=== PATIENT | female | born 1955 | race Caucasian/White ===

== ENCOUNTER 2017-12-21 11:55 | Outpatient (CLI) | payer MEDICAID, SELFPAY ==
[2017-12-21 12:05] VITALS: BP 116/69; PULSE 77; RESP 17; TEMP 37.2; O2SAT 99
--- NOTE | 2017-12-21 12:35 | DI.RAD_ITS ---
SYMPTOMS/DIAGNOSIS: LUMBAR MEDIAL BRANCH BLOCK C-ARM FLUOROSCOPY: Fluoroscopy Time: 25.2 sec C-arm fluoroscopy was utilized by Dr. Mac. Please see Dr. Mac's procedure note. Hardcopies show needles positioned adjacent to the facet joints at what appear to be the L 3 - 4, L 4 - 5 and L 5 - S 1 levels of the right.
--- NOTE | 2017-12-21 12:37 | PDOC.PAIN_ITS ---
Pain Clinic Procedure Note Current Active Problems Problem Status Onset Lumbosacral spondylosis without myelopathy Acute Lumbar/Sacral Medial Branch Blocks EBONI KAUR has been referred to the [facility] for lumbar/sacral medial branch blocks. COMMENTS: I did review the notes from Ms. Arevalo. Patient was interviewed and the medical record reviewed. There were no medical , pharmacologic, radiographic or other structural contraindications to attempting fluoroscopically guided local anesthetic lumbar/sacral medial branch blocks. Risks and expected side effects as well as potential benefit of the procedure were reviewed and voiced concerns addressed. The printed consent form was signed and witnessed. Standard time-out procedure was performed. Patient was placed in the prone position on the fluoroscopy table and automated blood pressure cuff and pulse oximeter applied. The skin entry points for approaching the anatomic target points of the segmental medial branches of right L3-L5DR were identified with anfluoroscopy and marked. Following thorough Chlorhexadine preparation of the skin and draping and 1% lidocaine infiltration of the skin entry points and subcutaneous tissues, a 25 gauge 3.5 spinal needle was placed under fluoroscopic guidance down on to the target point for each respective segmental medial branch.Position was confirmed in A/P, oblique and lateral views with 0.25ml of omnipaque 240. At this point 0.5ml 0.5% Bupivacaine was injected at each segmental nerve. Vital signs were stable throughout the procedure and were as recorded in the docflowsheet by the nursing staff. Follow up plans and appointments were discussed and was instructed to keep careful note of how the usual pain was modified by these injections. Specifically was asked to keep a pain diary for the next 24 hours using a numeric pain scale of 0-10 and report these results at the follow-up visit. Post procedure instruction was given as documented in the nursing documentation and having met discharge criteria. Patient was discharged from the [facility]. Based on the medial branches blocked today, if the patient has adequate relief and we are able to proceed to radiofrequency ablation, the treatment should result in the denervation of the right L4-L5 and L5-S1 FACET JOINTS. We would expect to denervate a total of 2 facets during the radiofrequency ablation. COMMENTS: She will call back with her 1-4 hour post-procedure pain scores. CC: Vance Gregorio
[2017-12-21] MEDS: Omnipaque 240 MG/ML 50 ML BTL IJ (12:57)
[2017-12-21] MEDS: Bupivacaine 0.5% Pres-Free 30 ML VIAL IJ (12:57)
[2017-12-21 12:58] VITALS: BP 141/70; PULSE 82; RESP 16; O2SAT 98
== END 2017-12-21 12:15 ==
PROVIDERS: PCP Family Medicine; Visit Provider Preventive Medicine Occupational Medicine
DX: M47.816 Spondylosis without myelopathy or radiculopathy, lumbar region (principal)
CPT/HCPCS: 64493; 64494; 72100; Q9967

== ENCOUNTER 2018-02-01 07:33 | Outpatient (CLI) | payer MEDICAID, SELFPAY ==
[2018-02-01 07:45] VITALS: BP 114/74; PULSE 62; RESP 16; TEMP 36.3; O2SAT 99
--- NOTE | 2018-02-01 08:20 | DI.RAD_ITS ---
SYMPTOMS/DIAGNOSIS: SACROILIAC JOINT DYSFUNCTION PAIN CLINIC SACROILIAC JOINT: Fluoroscopy Time: 64.5 sec Images submitted from the Pain Clinic demonstrate needle localization and injection of contrast material into the right SI joint. Please see Dr. Oshea' s procedure report for further information.
--- NOTE | 2018-02-01 08:45 | PDOC.PAIN ---
Pain Clinic Procedure Note Current Active Problems Problem Status Onset Sacroiliac joint dysfunction of right side Chronic INTRA-ARTICULAR SI JOINT INJECTION EBONI KAUR has been referred to the [facility] for intra-articular SI joint injection. COMMENTS: Patient had lumbar medial branch blocks on the right side which gave her no relief of pain worse. She has significant lumbar scoliosis and was seen in the spine center at the [facility] [place]. They told her that she would require extensive surgery if that was a direction she went in because of her bone mineralization there was significant risk for failure. I examined her today and she had positive provocative test 5 out of 5 for right SI joint pain. Patient was interviewed and the medical record reviewed. There were no medical, pharmacologic, radiographic or other structural contraindications to attempting fluoroscopically guided intra-articular SI joint injection. Risks and expected side effects as well as potential benefit of the procedure were reviewed and voiced concerns addressed. The printed consent form was signed and witnessed. Standard time-out procedure was performed. Patient was placed in the prone position on the fluoroscopy table and automated blood pressure cuff and pulse oximeter applied. The skin entry point for approaching {rightl} SI joints was identified under the most advantageous fluoroscopic view and marked. Following thorough Chlorhexadine preparation of the skin and draping and 1% lidocaine infiltration of the skin entry point and subcutaneous tissues, a 22 gauge spinal needle was placed under fluoroscopic guidance into {right} SI joints was identified under the most advantageous fluoroscopic view and marked. Following thorough Chlorhexadine preparation of the skin and draping and 1% lidocaine infiltration of the skin entry point and subcutaneous tissues, a 22 gauge spinal needle was placed under fluoroscopic guidance into { right/} SI joint. Intra-articular placement was confirmed by a clear arthrogram resulting from the injection of 0.25ml Omnipaque 240, 1ml 0.5% bupivacaine, and half ml (40mg) of 80mg concentration Depomedrol were injected intra-articularily with an initial reproduction of a significant component of the usual pain. Vital signs were stable throughout the procedure and were as recorded in the docflowsheet by the nursing staff. If given, dosages of intravenous drugs for anxiolysis and analgesia were documented in MAR. Follow up plans and appointments were discussed with the patient. Post procedure instruction was given as documented in nursing documentation and having met discharge criteria, and was discharged from the [facility]. COMMENTS: Pain went from 07/12-0. She will follow-up as needed. Reviewing her notes from the [facility] [place] also shows that she saw rheumatology and vitamin D level was not done. I would recommend that she have vitamin D level checked as well as bone density and consider treatment with vitamin D and calcium at 4 bisphosphonate or parathyroid analog. I will defer to PCP and possibly endocrinology CC: Vance Gregorio
--- NOTE | 2018-02-01 08:50 | PDOC.PAIN_ITS ---
Pain Clinic Procedure Note Current Active Problems Problem Status Onset Sacroiliac joint dysfunction of right side Chronic INTRA-ARTICULAR SI JOINT INJECTION EBONI KAUR has been referred to the [facility] for intra- articular SI joint injection. COMMENTS: Patient had lumbar medial branch blocks on the right side which gave her no relief of pain worse. She has significant lumbar scoliosis and was seen in the [place] center [place] [facility] They told her that she would require extensive surgery if that was a direction she went in because of her bone mineralization there was significant risk for failure. I examined her today and she had positive provocative test 5 out of 5 for right SI joint pain. Patient was interviewed and the medical record reviewed. There were no medical , pharmacologic, radiographic or other structural contraindications to attempting fluoroscopically guided intra-articular SI joint injection. Risks and expected side effects as well as potential benefit of the procedure were reviewed and voiced concerns addressed. The printed consent form was signed and witnessed. Standard time-out procedure was performed. Patient was placed in the prone position on the fluoroscopy table and automated blood pressure cuff and pulse oximeter applied. The skin entry point for approaching {rightl} SI joints was identified under the most advantageous fluoroscopic view and marked. Following thorough Chlorhexadine preparation of the skin and draping and 1% lidocaine infiltration of the skin entry point and subcutaneous tissues, a 22 gauge spinal needle was placed under fluoroscopic guidance into {right} SI joints was identified under the most advantageous fluoroscopic view and marked. Following thorough Chlorhexadine preparation of the skin and draping and 1% lidocaine infiltration of the skin entry point and subcutaneous tissues, a 22 gauge spinal needle was placed under fluoroscopic guidance into { right/} SI joint. Intra-articular placement was confirmed by a clear arthrogram resulting from the injection of 0.25ml Omnipaque 240, 1ml 0.5% bupivacaine, and half ml (40mg) of 80mg concentration Depomedrol were injected intra- articularily with an initial reproduction of a significant component of the usual pain. Vital signs were stable throughout the procedure and were as recorded in the docflowsheet by the nursing staff. If given, dosages of intravenous drugs for anxiolysis and analgesia were documented in MAR. Follow up plans and appointments were discussed with the patient. Post procedure instruction was given as documented in nursing documentation and having met discharge criteria, and was discharged from the [facility]. COMMENTS: Pain went from 07/12-0. She will follow-up as needed. Reviewing her notes from the [facility] also shows that she saw rheumatology and vitamin D level was not done. I would recommend that she have vitamin D level checked as well as bone density and consider treatment with vitamin D and calcium at 4 bisphosphonate or parathyroid analog. I will defer to PCP and possibly endocrinology CC: Vance Gregorio
[2018-02-01] MEDS: Omnipaque 240 MG/ML 50 ML BTL IJ (08:51)
[2018-02-01] MEDS: Bupivacaine 0.5% Pres-Free 30 ML VIAL IJ (08:52)
[2018-02-01] MEDS: methylPREDNISolone ACETATE 80 MG/ML VIAL IM (08:52)
[2018-02-01 08:53] VITALS: BP 150/76; PULSE 76; RESP 15; O2SAT 100
== END 2018-02-01 07:53 ==
PROVIDERS: PCP Family Medicine; Visit Provider Anesthesiology Pain Medicine
DX: M53.3 Sacrococcygeal disorders, not elsewhere classified (principal)
CPT/HCPCS: 27096; 72200; J1040; Q9967

== ENCOUNTER 2018-04-19 09:31 | Outpatient (CLI) | payer MEDICAID, SELFPAY ==
--- NOTE | 2018-04-19 10:18 | DI.RAD_ITS ---
SYMPTOMS/DIAGNOSIS: SACROILIAC JOINT DYSFUNCTION, SACROILIAC JOINT INJECTION C-ARM FLUOROSCOPY OF THE SPINE: Fluoroscopy Time: 24.9 sec Fluoroscopy was provided for Dr. Oshea for guidance with performing a right SI joint injection. Please see procedure note for details.
[2018-04-19] MEDS: Omnipaque 240 MG/ML 50 ML BTL IJ (10:36)
[2018-04-19] MEDS: Bupivacaine 0.5% Pres-Free 30 ML VIAL IJ (10:43)
[2018-04-19 10:47] VITALS: BP 142/76; PULSE 77; RESP 13; O2SAT 100
--- NOTE | 2018-04-19 10:47 | PDOC.PAIN ---
Pain Clinic Procedure Note Current Active Problems Problem Status Onset Sacroiliac joint dysfunction of right side Chronic INTRA-ARTICULAR SI JOINT INJECTION EBONI KAUR has been referred to the [facility] for intra-articular SI joint injection. COMMENTS: Pt had previous SI with good relief though short lived. She did start tx for osteoporosis Patient was interviewed and the medical record reviewed. There were no medical, pharmacologic, radiographic or other structural contraindications to attempting fluoroscopically guided intra-articular SI joint injection. Risks and expected side effects as well as potential benefit of the procedure were reviewed and voiced concerns addressed. The printed consent form was signed and witnessed. Standard time-out procedure was performed. Patient was placed in the prone position on the fluoroscopy table and automated blood pressure cuff and pulse oximeter applied. The skin entry point for approaching {right} SI joints was identified under the most advantageous fluoroscopic view and marked. Following thorough Chlorhexadine preparation of the skin and draping and 1% lidocaine infiltration of the skin entry point and subcutaneous tissues, a 22 gauge spinal needle was placed under fluoroscopic guidance into {right/]} SI joints was identified under the most advantageous fluoroscopic view and marked. Following thorough Chlorhexadine preparation of the skin and draping and 1% lidocaine infiltration of the skin entry point and subcutaneous tissues, a 22 gauge spinal needle was placed under fluoroscopic guidance into {]right/]} SI joint. Intra-articular placement was confirmed by a clear arthrogram resulting from the injection of 0.25ml Omnipaque 240, 1ml 0.5% bupivacaine, and half ml (40mg) of 80mg concentration Depomedrol were injected intra-articularily with an initial reproduction of a significant component of the usual pain. Vital signs were stable throughout the procedure and were as recorded in the docflowsheet by the nursing staff. If given, dosages of intravenous drugs for anxiolysis and analgesia were documented in MAR. Follow up plans and appointments were discussed with the patient. Post procedure instruction was given as documented in nursing documentation and having met discharge criteria, and was discharged from the [facility]. 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 Pain went from 3/10 to 0/10 CC: Vance Gregorio
[2018-04-19] MEDS: methylPREDNISolone ACETATE 80 MG/ML VIAL IM (10:49)
== END 2018-04-19 09:51 ==
PROVIDERS: PCP Family Medicine; Visit Provider Anesthesiology Pain Medicine
DX: M53.3 Sacrococcygeal disorders, not elsewhere classified (principal); M54.5 Low back pain; G89.29 Other chronic pain
CPT/HCPCS: 27096; 72200; J1040; Q9967

== ENCOUNTER 2018-06-29 09:43 | Outpatient (CLI) | payer MEDICAID, SELFPAY ==
[2018-06-29 09:58] VITALS: BP 112/76; PULSE 80; RESP 22; TEMP 36.3; O2SAT 95
[2018-06-29] MEDS: Omnipaque 240 MG/ML 50 ML BTL IJ (10:13)
[2018-06-29] MEDS: methylPREDNISolone ACETATE 40 MG/ML VIAL IJ (10:13)
[2018-06-29 10:20] VITALS: BP 129/74; PULSE 80; RESP 18; O2SAT 100
--- NOTE | 2018-06-29 10:20 | DI.RAD_ITS ---
SYMPTOMS/DIAGNOSIS: LUMBAR RADICULOPATHY, LUMBAR EPIDURAL STEROID INJECTION PAIN CLINIC: Fluoroscopy Time: 19.5 sec, 3.09 mGy. Images submitted from the pain clinic demonstrate needle positioning over the L 4 - 5 disc interspace level in conjunction with a lumbar epidural steroid injection. Please see Dr. Mac's procedure report for further information.
--- NOTE | 2018-06-29 10:22 | PDOC.PAIN ---
Pain Clinic Procedure Note Current Active Problems Problem Status Onset Lumbar radiculitis Acute Lumbar Epidural Steroid Injection Procedure Note COMMENTS: I did review her note from this clinic by Ms. Arevalo from 05/31/18. EBONI KAUR has been referred to the [facility] for lumbar epidural steroid injection. The patient was greeted by the nurse who verified patients name and . Patient was then taken to the fluoroscopy suite. The patient was interviewed and the medial record reviewed. There were no medical, pharmacologic, radiographic, or other structural contraindications to attempting fluoroscopically guided lumbar epidural steroid injection. Risks and expected side effects as well as potential benefits of the procedure were reviewed and voiced concerns expressed. The patient consent form was signed and witnessed. Standard patient time-out procedure was performed. The patient was placed in the prone position on the fluoroscopy table and automated blood pressure cuff and pulse oximeter applied. The skin entry point for entering/approaching the epidural space at the right side of L4-L5 and marked. Following thorough chlorhexadine preparation of the skin and draping and 1% lidocaine infiltration of the skin entry point and subcutaneous tissues, a 18 gauge Touhy needle was placed under fluoroscopic guidance and with loss of resistance technique into the epidural space. Needle tip placement and depth were aided and confirmed by fluoroscopy. There was no paresthesia or return of blood or CSF through the needle. 1 cc's of Omnipaque 240 was injected with clear epidural spread confirmed with fluoroscopy. 80mg depomedrol was injected. There was not any unusual discomfort expressed by EBONI KAUR. Patient's vital signs were stable throughout the procedure and were as recorded in nursing records. Follow up plans and appointments were discussed with patient. Post procedure instruction was given as documented in nursing records and having met discharge criteria and was discharged from the [facility]. COMMENTS: If this procedure is found to be helpful, it can be completed up to 3 times per 12 months.
== END 2018-06-30 12:41 | disposition home or self-care (01) ==
LOC: PC 09:44
PROVIDERS: PCP Family Medicine; Visit Provider Preventive Medicine Occupational Medicine
DX: M54.16 Radiculopathy, lumbar region (principal)
CPT/HCPCS: 62323; 72100; J1030; Q9967